=== PATIENT | female | born 1995 | race Hispanic/Latino ===

== ENCOUNTER 2018-03-07 13:21 | Emergency (ER) | payer OTHER, MEDICAID, SELFPAY ==
[2018-03-07 13:25] VITALS: BP 115/69; PULSE 77; RESP 15; TEMP 36.6; O2SAT 100; BMI 22.3
--- NOTE | 2018-03-07 14:24 | ED.LOWEXIN ---
HPI - Extremity Injury (Lower) <Su Lyman PA-C - Last Filed: 03/07/18 20:53> General Chief Complaint: Extremity Injury, Lower Stated Complaint: left foot and lower leg injury,follow up Time Seen by Provider: 03/07/18 14:16 Source: patient Mode of arrival: ambulatory Limitations: no limitations History of Present Illness HPI Narrative: This 22-year-old female states that she slipped on some slick cement steps on Sunday, twisting her left foot and falling. She was seen at a local ED in [place], splinted for foot fracture. She was apparently told to follow up at the ED for x-rays as she was referred to Orthopedics locally there but unable to get there. She states that her splint is comfortable. Her size crutches were not available in the ED apparently so she states she has been hopping to avoid bearing weight. Other x-rays were done per her paperwork but she is not aware of any other fracture. She had been in touch with [facility] here for follow-up and they had been awaiting receipt of her x-rays. She got a message while waiting here that they have received these and that she can schedule. Related Data Allergies Allergy/AdvReac Type Severity Reaction Status Date / Time No Known Drug Allergies Allergy Verified 03/07/18 13:32 Review of Systems <Su Lyman PA-C - Last Filed: 03/07/18 20:53> Review of Systems ROS Unobtainable: All systems reviewed & are unremarkable except as noted in HPI and below Exam <Su Lyman PA-C - Last Filed: 03/07/18 20:53> Narrative Exam Narrative: General: Patient is sitting comfortably Dermatologic: Ecchymoses on the left mid to lateral toes and distal ft Neurovascular: Left foot toes are warm and pink with brisk cap refill, sensation is grossly intact Musculoskeletal: Left foot and lower leg are splinted and Daniel wrapped. She has normal dorsi and plantar flexion of the toes with some tenderness on full dorsiflexion. No visible effusion. Initial Vital Signs Initial Vital Signs: Vital Signs Temperature 97.9 F 03/07/18 13:25 Pulse Rate 77 03/07/18 13:25 Respiratory Rate 15 03/07/18 13:25 Blood Pressure 115/69 03/07/18 13:25 Pulse Oximetry 100 03/07/18 13:25 <Gerardo Hollins DO - Last Filed: 03/08/18 07:42> Initial Vital Signs Initial Vital Signs: Vital Signs Temperature 97.9 F 03/07/18 13:25 Pulse Rate 77 03/07/18 13:25 Respiratory Rate 15 03/07/18 13:25 Blood Pressure 115/69 03/07/18 13:25 Pulse Oximetry 100 03/07/18 13:25 Course <Su Lyman PA-C - Last Filed: 03/07/18 20:53> Vital Signs - 8 hr 03/07/18 13:25 03/07/18 14:51 Temperature 97.9 F Pulse Rate 77 80 Respiratory Rate 15 18 Blood Pressure 115/69 Blood Pressure [Left Arm] 104/67 Pulse Oximetry 100 100 <Gerardo Hollins DO - Last Filed: 03/08/18 07:42> Vital Signs - 8 hr 03/07/18 13:25 03/07/18 14:51 Temperature 97.9 F Pulse Rate 77 80 Respiratory Rate 15 18 Blood Pressure 115/69 Blood Pressure [Left Arm] 104/67 Pulse Oximetry 100 100 Discharge Plan Departure Patient Disposition: Home Clinical Impression: Foot fracture, left Discharge Date/Time: 03/07/18 15:10 Interventions: ED Discharge Assessment Last Done: 03/07/18 15:10 Instructions: DI for Foot Fracture Activity Restrictions/Additional Instructions: Please keep the splint on your foot, and use the crutches at all times when you are bearing weight. Since [facility] has received your x-rays, we do not need to repeat these today. Please call them and let them know you need to be seen in about the next 5 days for follow up on your fracture. You can continue [id number] ibuprofen or Aleve for your pain and you can take the prescription that you were previously given as needed, but do not drive as it could make you sleepy. Referrals: [facility] [Provider Group] <Gerardo Hollins DO - Last Filed: 03/08/18 07:42> Cosign ED Attending Cherelle Attestation: I was available for consultation during this patient's emergency department encounter
--- NOTE | 2018-03-07 14:40 | ED_ITS ---
HPI - Extremity Injury (Lower) <Su Lyman PA-C - Last Filed: 03/07/18 20:53> General Chief Complaint: Extremity Injury, Lower Stated Complaint: left foot and lower leg injury,follow up Time Seen by Provider: 03/07/18 14:16 Source: patient Mode of arrival: ambulatory Limitations: no limitations History of Present Illness HPI Narrative: This 22-year-old female states that she slipped on some slick cement steps on Sunday, twisting her left foot and falling. She was seen at a local ED in [place], splinted for foot fracture. She was apparently told to follow up at the ED for x-rays as she was referred to Orthopedics locally there but unable to get there. She states that her splint is comfortable. Her size crutches were not available in the ED apparently so she states she has been hopping to avoid bearing weight. Other x-rays were done per her paperwork but she is not aware of any other fracture. She had been in touch with [facility] here for follow-up and they had been awaiting receipt of her x-rays. She got a message while waiting here that they have received these and that she can schedule. Related Data Allergies Allergy/AdvReac Type Severity Reaction Status Date / Time No Known Drug Allergies Allergy Verified 03/07/18 13:32 Review of Systems <Su Lyman PA-C - Last Filed: 03/07/18 20:53> Review of Systems ROS Unobtainable: All systems reviewed & are unremarkable except as noted in HPI and below Exam <Su Lyman PA-C - Last Filed: 03/07/18 20:53> Narrative Exam Narrative: General: Patient is sitting comfortably Dermatologic: Ecchymoses on the left mid to lateral toes and distal ft Neurovascular: Left foot toes are warm and pink with brisk cap refill, sensation is grossly intact Musculoskeletal: Left foot and lower leg are splinted and Daniel wrapped. She has normal dorsi and plantar flexion of the toes with some tenderness on full dorsiflexion. No visible effusion. Initial Vital Signs Initial Vital Signs: Vital Signs Temperature 97.9 F 03/07/18 13:25 Pulse Rate 77 03/07/18 13:25 Respiratory Rate 15 03/07/18 13:25 Blood Pressure 115/69 03/07/18 13:25 Pulse Oximetry 100 03/07/18 13:25 <Gerardo Hollins DO - Last Filed: 03/08/18 07:42> Initial Vital Signs Initial Vital Signs: Vital Signs Temperature 97.9 F 03/07/18 13:25 Pulse Rate 77 03/07/18 13:25 Respiratory Rate 15 03/07/18 13:25 Blood Pressure 115/69 03/07/18 13:25 Pulse Oximetry 100 03/07/18 13:25 Course <Su Lyman PA-C - Last Filed: 03/07/18 20:53> Vital Signs - 8 hr 03/07/18 13:25 03/07/18 14:51 Temperature 97.9 F Pulse Rate 77 80 Respiratory Rate 15 18 Blood Pressure 115/69 Blood Pressure [Left Arm] 104/67 Pulse Oximetry 100 100 <Gerardo Hollins DO - Last Filed: 03/08/18 07:42> Vital Signs - 8 hr 03/07/18 13:25 03/07/18 14:51 Temperature 97.9 F Pulse Rate 77 80 Respiratory Rate 15 18 Blood Pressure 115/69 Blood Pressure [Left Arm] 104/67 Pulse Oximetry 100 100 Discharge Plan Departure Patient Disposition: Home Clinical Impression: Foot fracture, left Discharge Date/Time: 03/07/18 15:10 Interventions: ED Discharge Assessment Last Done: 03/07/18 15:10 Instructions: DI for Foot Fracture Activity Restrictions/Additional Instructions: Please keep the splint on your foot, and use the crutches at all times when you are bearing weight. Since [facility] has received your x-rays , we do not need to repeat these today. Please call them and let them know you need to be seen in about the next 5 days for follow up on your fracture. You can continue [id number] ibuprofen or Aleve for your pain and you can take the prescription that you were previously given as needed, but do not drive as it could make you sleepy. Referrals: [facility] [Provider Group] <Gerardo Hollins DO - Last Filed: 03/08/18 07:42> Cosign ED Attending Cherelle Attestation: I was available for consultation during this patient's emergency department encounter
[2018-03-07 14:51] VITALS: BP 104/67; PULSE 80; RESP 18; O2SAT 100
== END 2018-03-07 15:10 | disposition home or self-care (01) ==
PROVIDERS: Emergency Provider Internal Medicine
DX: S92.902A Unspecified fracture of left foot, initial encounter for closed fracture (principal); W01.0XXA Fall on same level from slipping, tripping and stumbling without subsequent striking against object, initial encounter
CPT/HCPCS: 99282

== ENCOUNTER 2018-03-18 09:14 | Day surgery (SDC) | payer OTHER, MEDICAID, SELFPAY ==
[2018-03-13 09:38] VITALS: BMI 22.3
[2018-03-18] VITALS (12 sets, daily range): BP systolic 104–120; BP diastolic 72–84; PULSE 65–92; RESP 9–21; TEMP 36.6–36.8; O2SAT 96–100; BMI 22.3
[2018-03-18] MEDS: LACTATED RINGERS 1,000 ML 42 ML IV (09:49)
--- NOTE | 2018-03-18 11:26 | PM.PREOP ---
Pre-operative Note Interval Note History & Physical reviewed/Exam performed by Physician: Yes Changes to H&P: No
--- NOTE | 2018-03-18 11:27 | PM.OP.1 ---
Operative Date/Time/Diagnoses Date of procedure: 03/18/18 Time of procedure: 11:27 Pre-op diagnosis: Left fifth metatarsal fracture Post-op diagnosis: same Procedure & Clinicians Procedure: Left fifth metatarsal open reduction internal fixation Same procedure as scheduled: Yes Indications: Displaced fifth metatarsal fracture Surgeon: Ansley Gunderson Click Yes if Unassisted: Yes Anesthesia Type: General Operative Notes Closure Type: primary Specimen(s): none sent Prosthetic devices, grafts, tissues, transplants, or devices: Schaller Baby Gorilla locking plate and 2.0 screws x7 (3 non-locking, 4 locking) Estimated Blood Loss (mL): 20 Blood products transfused: none Tourniquet time (min): 45 Procedure in detail: The patient was brought to the operating room and placed on the operating table in the supine position. The tourniquet was placed about the thigh. Well padded appropriately aligned. After induction of general anesthesia the foot and ankle were prepped and draped in the usual aseptic manner. The tourniquet was inflated. Attention was directed to the 5th metatarsal head and shaft where an incision was made over the dorsal lateral aspect. The incision was deepened through subcutaneous tissues being careful to identify and retract all vital neural and vascular structures. All bleeders were cauterized and ligated as necessary. The fracture was immediately seen and it was noted to have a little bit of fibrous scarring tissue between the fragments and a couple smaller butterfly fragments dorsally. I was able to gently clean out and reapproximate the largest portions of the fracture fragment re-estimating the length. A curette was used to rough up a little of the edges of the fracture to encourage healing. With bone reduction forceps in place a 2-0 lag screw was placed using standard AO technique dorsal to plantar across the oblique fracture. This was done with the aid of a C-arm. This was checked under C-arm and strength was good as well as compression. Next a plate was placed across the dorsal lateral aspect as well and was able to stretch as well as lag further the central fragments. This was appropriately aligned and appeared to contour nicely along with good strength. This was verified on C-arm in 3 planes to be appropriately reduced and aligned well. The area was irrigated with copious amounts of normal sterile saline. The tourniquet was deflated, a prompt hyperemic response was seen to the foot. Closure was performed subcutaneously using 4 0 Vicryl and 3 0 nylon to the skin. A mildly compressive dressing was placed on the foot as was a posterior splint with good padding appropriately aligned. Complications: none Condition: stable Disposition: PACU Plan for aftercare: Following a period of postoperative monitoring, the patient be discharged home on written and oral postoperative instructions including keeping the dressing dry and intact, avoiding ambulation on the foot, icing and elevating the foot when seated home. DVT prevention techniques have been reviewed. For the 1st postoperative visit the dressing will be changed and we will check the sutures. Near the 4th postoperative week we will likely take our 1st x-ray. She is prescribed a refill of her [place] 5/325 mg tabs today and instructions and safety measures are given. She is also requesting a prescription for an antinausea medication which will be called into her pharmacy.
[2018-03-18] MEDS: CEFAZOLIN 1 GM VIAL IV (11:47)
--- NOTE | 2018-03-18 12:19 | SUR.OPER ---
Supine on padded OR bed, head on pillow, arms secured on padded arm boards at <90 degrees abduction, legs uncrossed, safety belt at thigh, tape over blanket over lower legs.
[2018-03-18] MEDS: BUPIVACAINE 0.5% (PF) VIAL 30 ML INJ (12:31)
[2018-03-18] MEDS: ONDANSETRON 4 MG/2 ML INJ IV (13:46)
[2018-03-18] MEDS: fentaNYL 100 MCG/2 ML INJ 50 MCG IV ×2 (13:54→14:02)
[2018-03-18] MEDS: HYDROCODONE/ACET 5/325 TABLET 1 TAB PO (14:30)
[2018-03-18] MEDS: ONDANSETRON 4 MG ODT SL (15:14)
--- NOTE | 2018-03-18 15:14 | SUR.PHASEII ---
After getting dressed and transferring into WC, pt c/o of feeling nausated. Medicated with zofran po per verbal order received from Dr. Hopper. pt transferred back into bed, cool wash cloth placed on forehead and given della hansel. bed in lowest position and call light given to pt.
--- NOTE | 2018-03-18 16:06 | SUR.PHASEII ---
pt was srtble and ready to leave phase 2 since 1529. car trouble cased pt to have to wait for transportation
== END 2018-03-18 15:30 | disposition home or self-care (01) ==
PROVIDERS: Visit Provider Podiatrist
PROC: (CPT 26535; principal; 2018-03-18 10:45)
DX: S92.352A Displaced fracture of fifth metatarsal bone, left foot, initial encounter for closed fracture (principal); W10.9XXA Fall (on) (from) unspecified stairs and steps, initial encounter; D64.9 Anemia, unspecified
CPT/HCPCS: 28485; J0690; J1100; J2250; J2405; J2704; J3010